=== PATIENT | male | born 1975 | race Caucasian/White ===

== ENCOUNTER 2017-03-27 10:43 | Outpatient (CLI) | payer OTHER ==
[~2017-03-27] VITALS: Ht 170.2 cm; Wt 84.4 kg
[~2017-03-27 10:43] MED LIST: COLA100C5 PO; LEVO137T2 PO; MULT1TAB11 PO; RANI15TA PO; VALS1TAB46 PO
[2017-03-27] MEDS ORDERED: LIDOCAINE 2% INJ 100 MG/5 ML SDV (FOR ANES.) As Ordered ONE (10:53)
[2017-03-27] MEDS ORDERED: PROPOFOL 200 MG/20 ML VIAL As Ordered ONE (10:53)
[2017-03-27] MEDS ORDERED: NS 1,000 ML IV ONE (11:00)
--- NOTE | 2017-03-27 11:33 | ROOR ---
Patient Name: David Ignacio Procedure Date: 03/27/2017 11:18 AM Date of : 1975 Age: 41 Room: [facility] Gender: Male Note Status: Finalized Procedure: Total Colonoscopy to Cecum + Bx. To r/o Microscopic Colitis Indications: Change in bowel habits Providers: Armen Edwards MD Referring MD: REFUGIO HUFF MD Requesting Provider: Medicines: Monitored Anesthesia Care Complications: No immediate complications. Procedure: Pre-Anesthesia Assessment: - The heart rate, respiratory rate, oxygen saturations, blood pressure, adequacy of pulmonary ventilation, and response to care were monitored throughout the procedure. The Colonoscope was introduced through the anus and advanced to the cecum, identified by appendiceal orifice and ileocecal valve. The colonoscopy was performed without difficulty. The patient tolerated the procedure well. The quality of the bowel preparation was excellent. Findings: The perianal and digital rectal examinations were normal. Non-bleeding internal hemorrhoids were found during retroflexion. The hemorrhoids were small and Grade I (internal hemorrhoids that do not prolapse). No other significant abnormalities were identified in a careful examination of the remainder of the colon. The exam was otherwise without abnormality on direct and retroflexion views. Biopsies for histology were taken with a cold forceps from the ascending colon, transverse colon and descending colon for evaluation of microscopic colitis. The exam was otherwise without abnormality on direct and retroflexion views. Impression: - Non-bleeding internal hemorrhoids. - The examination was otherwise normal on direct and retroflexion views. - The examination was otherwise normal on direct and retroflexion views. - Biopsies were taken with a cold forceps from the ascending colon, transverse colon and descending colon for evaluation of microscopic colitis. - The exam was otherwise normal to the cecum. Recommendation: - Patient has a contact number available for emergencies. The signs and symptoms of potential delayed complications were discussed with the patient. Return to normal activities tomorrow. Written discharge instructions were provided to the patient. - High fiber diet. - Discharge patient to home. - Continue present medications. - Await pathology results. - Telephone GI clinic for pathology results in 1 week. - Repeat colonoscopy in 10 years for surveillance. - Return to referring physician. - The findings and recommendations were discussed with the patient's family. Armen Edwards MD Armen Edwards MD 03/27/2017 11:32:56 AM This report has been signed electronically. Number of Addenda: 0 Note Initiated On: 03/27/2017 11:18 AM Estimated Blood Loss: Estimated blood loss: none.
[2017-03-27 12:06] VITALS: BP 115/70
== END 2017-03-27 12:08 | disposition home or self-care (01) ==
LOC: M OPP 10:43
PROVIDERS: ATTEND Internal Medicine Gastroenterology
DX: R19.4 Change in bowel habit (principal); K58.2 Mixed irritable bowel syndrome; K64.0 First degree hemorrhoids; K21.9 Gastro-esophageal reflux disease without esophagitis; I10 Essential (primary) hypertension; M10.9 Gout, unspecified; E03.9 Hypothyroidism, unspecified; R21 Rash and other nonspecific skin eruption; R14.0 Abdominal distension (gaseous); R12 Heartburn; M54.2 Cervicalgia; Z98.1 Arthrodesis status; M25.60 Stiffness of unspecified joint, not elsewhere classified; F41.9 Anxiety disorder, unspecified; R51 Headache; G47.30 Sleep apnea, unspecified; Z79.899 Other long term (current) drug therapy; Z80.8 Family history of malignant neoplasm of other organs or systems; Z80.1 Family history of malignant neoplasm of trachea, bronchus and lung